=== PATIENT | female | born 1990 | race Caucasian/White ===

== ENCOUNTER 2018-11-21 11:50 | Inpatient (IN) | payer OTHER ==
[2018-11-21 13:07] VITALS: BMI 30.6
--- NOTE | 2018-11-21 14:31 | HP ---
COWS - Scale Resting Pulse: 2= [place] 101-120 Sweatin=Flushed/Facial Moisture Restless Observation: 1= Difficult to Sit Still Pupil Size: 0= Normal to Room Light Bone or Joint Aches: 2= Severe Diffuse Aches Runny Nose/ Eye Tearin= Runny Nose/Eyes GI Upset > 30mins: 2= Nausea/Diarrhea Tremor Observation: 2= Slight Tremor Visible Yawning Observation: 2= >3x During Session Anxiety or Irritability: 2=Irritable/Anxious Goose Flesh Skin: 3=Piloerection COWS Score: 20 CIWA Score Nausea/Vomitin-Mild Nausea/No Vomiting Muscle Tremors: 4-Moderate,w/Arms Extend Anxiety: 4-Mod. Anxious/Guarded Agitation: 4-Moderately Restless Paroxysmal Sweats: 3 Orientation: 0-Oriented Tacttile Disturbances: 0-None Auditory Disturbances: 0-None Visual Disturbances: 0-None Headache: 1-Very Mild CIWA-Ar Total Score: 17 - Admission Criteria [facility] Guidelines: Admission for Medically Managed Detox: Requires at least one of the followin. CIWA greater than 12 2. Seizures within the past 24 hours 3. Delirium tremens within the past 24 hours 4. Hallucinations within the past 24 hours 5. Acute intervention needed for co occurring medical disorder 6. Acute intervention needed for co occurring psychiatric disorder 7. Severe withdrawal that cannot be handled at a lower level of care (continued vomiting, continued diarrhea, abnormal vital signs) requiring intravenous medication and/or fluids 8. Admission ROS [facility] - HPI Chief Complaint: I need to stop using and have to get my life back. Allergies/Adverse Reactions: Allergies Allergy/AdvReac Type Severity Reaction Status Date / Time No Known Allergies Allergy Verified 11/21/18 12:58 History of Present Illness: pt is a 28yr old female first time in detox; seeking detox for treatment. Exam Limitations: No Limitations - Ebola screening Have you traveled outside of the country in the last 21 days: No Have you had contact with anyone from an Ebola affected area: No Have you been sick,other than usual withdrawal symptoms: No Do you have a fever: No - Review of Systems Constitutional: Chills, Diaphoresis, Night Sweats, Changes in sleep EENT: reports: Tearing, Nose Congestion Respiratory: reports: No Symptoms reported Cardiac: reports: No Symptoms Reported GI: reports: Nausea, Poor Appetite, Poor Fluid Intake, Indigestion : reports: No Symptoms Reported Musculoskeletal: reports: Back Pain, Joint Pain, Muscle Pain Integumentary: reports: Flushing, Sweating Neuro: reports: Headache, Seizure (last seizure 08/2017; no episode afterwards. maybe related to drug use), Tingling, Tremors Endocrine: reports: Excessive Sweating, Flushing Hematology: reports: No Symptoms Reported Psychiatric: reports: Judgement Intact, Mood/Affect Appropiate, Orientated x3, Agitated, Anxious Other Systems: Reviewed and Negative Patient History - Patient Medical History Hx Anemia: No Hx Asthma: No Hx Chronic Obstructive Pulmonary Disease (COPD): No Hx Cancer: No Hx Cardiac Disorders: No Hx Congestive Heart Failure: No Hx Hypertension: No Hx Hypercholesterolemia: No Hx Pacemaker: No HX Cerebrovascular Accident: No Hx Seizures: Yes (benzo related a year ago) Hx Dementia: No Hx Diabetes: No Hx Gastrointestinal Disorders: Yes (acid reflux) Hx Liver Disease: No Hx Genitourinary Disorders: No Hx Sexually Transmitted Disorders: No Hx Renal Disease (ESRD): No Hx Thyroid Disease: No Hx Human Immunodeficiency Virus (HIV): No (negative) Hx Hepatitis C: No (negative) Hx Depression: No Hx Suicide Attempt: No (denies) Hx Bipolar Disorder: No Hx Schizophrenia: No Other Medical History: anxiety/insomnia - Patient Surgical History Past Surgical History: No - PPD History Previous Implant?: Yes Documented Results: Negative w/o proof Implanted On Prior [facility] Admission?: No PPD to be Administered?: Yes - Reproductive History Patient is a Female of Child Bearing Age (11 -55 yrs old): Yes Last Menstrual Period: 10/24/18 Patient : No - Smoking Cessation Smoking history: Current every day smoker Have you smoked in the past 12 months: Yes Hx Chewing Tobacco Use: Yes Initiated information on smoking cessation: Yes 'Breaking Loose' booklet given: 11/21/18 - Substance & Tx. History Hx Alcohol Use: No Hx Substance Use: Yes Substance Use Type: Heroin, Opiates, Tranquilizers Hx Substance Use Treatment: No (first detox) - Substances abused Heroin Substance route: Inhalation Frequency: Daily Amount used: 1 BUNDLE Age of first use: 26 Date of last use: 11/20/18 Alprazolam (Xanax) Substance route: Oral Frequency: Daily Amount used: 2MG DAILY Age of first use: 25 Date of last use: 11/20/18 Family Disease History - Family Disease History Family Disease History: Diabetes: Sister Admission Physical Exam [facility] - Vital Signs Vital Signs: Vital Signs - 24 hr 11/21/18 11/21/18 12:58 13:34 Temperature 98.5 F 98.5 F Pulse Rate 102 H 102 H Respiratory 20 20 Rate Blood Pressure 122/74 122/74 - Physical General Appearance: Yes: Appropriately Dressed, Moderate Distress, Tremorous, Irritable, Sweating, Anxious HEENTM: Yes: Normal Voice, Nasal Congestion, Rhinorrhea Respiratory: Yes: Lungs Clear, Normal Breath Sounds, No Respiratory Distress Neck: Yes: No masses,lesions,Nodules Breast: Yes: Within Normal Limits Cardiology: Yes: Regular Rate, S1, S2, Tachycardia Abdominal: Yes: Normal Bowel Sounds, Non Tender Genitourinary: Yes: Within Normal Limits Back: Yes: Normal Inspection Musculoskeletal: Yes: full range of Motion Extremities: Yes: Normal Capillary Refill, Normal Inspection, Non-Tender, Tremors Neurological: Yes: Fully Oriented, Normal Response Integumentary: Yes: Normal Color, Diaphoresis Lymphatic: Yes: Within Normal Limits - Diagnostic (1) Opioid dependence with withdrawal Current Visit: Yes Status: Chronic (2) Sedative, hypnotic or anxiolytic abuse, uncomplicated Current Visit: Yes Status: Chronic (3) Nicotine dependence Current Visit: Yes Status: Chronic Qualifiers: Nicotine product type: cigarettes Substance use status: uncomplicated Qualified Code(s): F17.210 - Nicotine dependence, cigarettes, uncomplicated (4) History of seizure Current Visit: No Status: Suspected Cleared for Admission [facility] - Detox or Rehab [facility] Level of Care: Medically Managed Detox Regimen/Protocol: Methadone/Valium Breathalyzer - Breathalyzer Breathalyzer: 0 Urine Drug Screen - Test Device Lot number: [id number] Expiration date: 06/17/20 - Control Is test valid?: Yes - Results Drug screen NEGATIVE: No Urine drug screen results: THC-Marijuana, MET-Methamphetamine, FEN-Fentanyl, MOP -Opiates, OXY-Oxycodone, MTD-Methadone, BZO-Benzodiazepines Inpatient Rehab Admission - Rehab Decision to Admit Inpatient rehab admission?: No
[2018-11-21] MEDS ORDERED: BISMUTH SUBSALICYLATE 262 MG/15 ML BTL PO PRN (14:50)
[2018-11-21] MEDS ORDERED: MELATONIN 5 MG TABLETS PO PRN (14:50)
[2018-11-21] MEDS ORDERED: MAG HYDROX/AL HYDROX/SIMETH 30 ML UNIT-DOSE CUP PO PRN (14:50)
[2018-11-21] MEDS ORDERED: MAGNESIUM CITRATE 300 ML BOTTLE PO PRN (14:50)
[2018-11-21] MEDS ORDERED: ONDANSETRON *ODT* 4 MG TABLET SL PRN (14:50)
[2018-11-21] MEDS ORDERED: ACETAMINOPHEN 325 MG TABLET (FP) PO PRN (14:50)
[2018-11-21] MEDS ORDERED: DICYCLOMINE HCL 10 MG CAPSULE PO PRN (14:50)
[2018-11-21] MEDS ORDERED: P-EPHED 60MG/TRIPROLIDI 2.5MG TABLET PO PRN (14:50)
[2018-11-21] MEDS ORDERED: MAGNESIUM HYDROX 2400MG/30ML ORAL SUSPENSION 30 ML CUP PO PRN (14:50)
[2018-11-21] MEDS ORDERED: MENTHOL/PHENOL 1 EACH UD MM PRN (14:50)
[2018-11-21] MEDS ORDERED: diazePAM 5 MG TABLET PO ONE (15:30)
[2018-11-21] MEDS ORDERED: METHADONE HCL 10 MG TABLET (FOR DETOX USE ONLY) PO ONE ×2 (15:30→23:00)
--- NOTE | 2018-11-21 16:28 | CONSULT ---
[facility] Psychiatric Consult - Data Date of interview: 11/21/18 Admission source: [facility] Identifying data: First admission to [facility] for this 28 y/o female self-referred for detoxification (heroin, xanax). Examined at [address] [place] [address]. Patient is single, no dependents, currently domiciled (eviction pending), unemployed and deprived of financial support. Substance Abuse History: Confirmed by the patient in this interview. Details in current [facility] report : Smoking history: Current every day smoker. Have you smoked in the past 12 months: Yes. Hx Chewing Tobacco Use: Yes. Initiated information on smoking cessation: Yes. 'Breaking Loose' booklet given: . - Substance & Tx. History. Hx Alcohol Use: No. Hx Substance Use: Yes. Substance Use Type: Heroin, Opiates, Tranquilizers. Hx Substance Use Treatment : No (first detox). - Substances abused. Heroin. Substance route: Inhalation. Frequency: Daily. Amount used: 1 BUNDLE. Age of first use: 26. Date of last use: 11/20/18. Alprazolam (Xanax). Substance route: Oral. Frequency: Daily. Amount used: 2MG DAILY. Age of first use: 25. Date of last use: 11/20/18 Medical History: Consistent with GERD and a history of withdrawal-related seizures (2018). Additional history of one accidental overdose of heroin ( treated with naloxone). Psychiatric History: Patient denies history of psychiatric hospitalizations. Ms Hunt indicates that she has been experiencing debilitating, chronic anxiety but , due to issues of insurance coverage (self-report), she has not been able [facility]. She use xanax, bought in the streets. Patient denies history of suicide attempts. Physical/Sexual Abuse/Trauma History: Patient denies history of abuse. Additional Comment: Urine drug screen results: THC-Marijuana, MET- Methamphetamine, FEN-Fentanyl, MOP-Opiates, OXY-Oxycodone, MTD-Methadone, BZO- Benzodiazepines. Noted. Patient denies use of any substance other than xanax + heroin. She is " surprised " to be informed of the results of this toxicology screen. She concluded that these drugs were added to the heroin used prior to this [facility] visit. Mental Status Exam - Mental Status Exam Alert and Oriented to: Time, Place, Person Cognitive Function: Good Patient Appearance: Well Groomed (overweight) Mood: Nervous, Withdrawn, Anxious Affect: Mood Congruent, Constricted Patient Behavior: Fatigued, Appropriate, Cooperative Speech Pattern: Clear, Appropriate Voice Loudness: Normal Thought Process: Intact, Goal Oriented Thought Disorder: Not Present Hallucinations: Denies Suicidal Ideation: Denies Homicidal Ideation: Denies Insight/Judgement: Poor Sleep: Poorly, Difficulty falling asleep Appetite: Good Gait/Station: Normal Psychiatric Findings - Problem List ([place] 1, 2,3) (1) Opioid dependence with withdrawal Current Visit: Yes Status: Acute (2) Sedative, hypnotic or anxiolytic abuse, uncomplicated Current Visit: Yes Status: Chronic (3) Nicotine dependence Current Visit: Yes Status: Chronic Qualifiers: Nicotine product type: cigarettes Substance use status: uncomplicated Qualified Code(s): F17.210 - Nicotine dependence, cigarettes, uncomplicated (4) Substance induced mood disorder Current Visit: Yes Status: Chronic (5) Insomnia Current Visit: Yes Status: Chronic - Initial Treatment Plan Initial Treatment Plan: Psychoeducation. Sleep hygiene. Detoxification. Relapse prevention (MAT) + benefits of rehabilitative care : discussed in this session. Motivational counseling. Observation.
[2018-11-21] MEDS: ACETAMINOPHEN 325 MG TABLET (FP) PO PRN (17:13)
[2018-11-21] MEDS: cloNIDine HCL 0.1 MG TABLET PO PRN (17:16)
[2018-11-21] MEDS: diazePAM 5 MG TABLET PO PRN (17:16)
[2018-11-21 18:59] LABS: HEMOGLOBIN 12.7 GM/dL (10.7-15.3); MCH 30.4 pg (25.7-33.7); MCHC 33.6 g/dl (32.0-36.0); MEAN CELL VOLUME 90.4 fl (80-96); MEAN PLT VOLUME 7.7 fl (7.5-11.1); PLATELET COUNT 410 K/MM3 (134-434); RDW 12.7 % (11.6-15.6); WHITE BLOOD COUNT 6.4 K/mm3 (4.0-10.0)
[2018-11-21 19:25] LABS: ALBUMIN 4.1 g/dl (3.4-5.0); ALK PHOS 73 U/L (45-117); ANION GAP 6 MMOL/L (8-16); BILIRUBIN,TOTAL 0.5 mg/dL (0.2-1); BLOOD UREA NITROGEN 15 mg/dL (7-18); CALCIUM 9.4 mg/dL (8.5-10.1); CHLORIDE 104 mmol/L (98-107); CO2 28 mmol/L (21-32); CREATININE 0.7 mg/dL (0.55-1.3); GLUCOSE,RANDOM 95 mg/dL (74-106); POTASSIUM 4.3 mmol/L (3.5-5.1); SGOT/AST 18 U/L (15-37); SGPT/ALT 21 U/L (13-61); SODIUM 138 mmol/L (136-145); TOT PROT 7.5 g/dl (6.4-8.2)
[2018-11-21] MEDS: THIAMINE HCL 100 MG TABLET (FP) PO SCH (22:18)
[2018-11-21] MEDS: diazePAM 5 MG TABLET PO SCH (22:18)
[2018-11-21] MEDS: traZODone HCL 50 MG TABLET (FP) PO PRN (22:19)
[2018-11-21] MEDS: RANITIDINE HCL 150 MG TABLET (FP) PO SCH (22:20)
[2018-11-21] MEDS: BACLOFEN 10 MG TABLET (FP) PO PRN (22:20)
[2018-11-22] MEDS: diazePAM 5 MG TABLET PO SCH ×3 (05:37→22:07)
[2018-11-22] MEDS ORDERED: METHADONE HCL 10 MG TABLET (FOR DETOX USE ONLY) PO ONE (10:00)
[2018-11-22] MEDS ORDERED: NICOTINE 21 MG/24 HOURS TOPICAL PATCH TD SCH (10:00)
[2018-11-22] MEDS ORDERED: NICOTINE 14 MG/24 HOURS TOPICAL PATCH TD SCH (10:10)
[2018-11-22] MEDS: PRENATAL VITAMINS W/ FOLIC ACID TABLET (FP) PO SCH (10:17)
[2018-11-22] MEDS: RANITIDINE HCL 150 MG TABLET (FP) PO SCH ×2 (10:17→22:07)
[2018-11-22] MEDS: diazePAM 5 MG TABLET PO PRN ×2 (10:19→17:08)
[2018-11-22] MEDS ORDERED: NICOTINE 14 MG/24 HOURS TOPICAL PATCH TD ONE (10:52)
[2018-11-22] MEDS: NICOTINE POLACRILEX 4 MG GUM BUC PRN ×2 (11:39→17:08)
--- NOTE | 2018-11-22 11:41 | EKG ---
Test Reason : Blood Pressure : / mmHG Vent. Rate : 089 BPM Atrial Rate : 089 BPM P-R Int : 136 ms QRS Dur : 088 ms QT Int : 354 ms P-R-T Axes : 055 061 025 degrees QTc Int : 430 ms NORMAL SINUS RHYTHM NORMAL ECG NO PREVIOUS ECGS AVAILABLE Confirmed by Nghia Veliz MD ([id number]) on 11/22/2018 11:40:44 AM Referred By: Confirmed By:Nghia Veliz MD
--- NOTE | 2018-11-22 12:04 | PN ---
[facility] CIWA - CIWA Score Nausea/Vomitin-Mild Nausea/No Vomiting Muscle Tremors: 4-Moderate,w/Arms Extend Anxiety: 3 Agitation: 3 Paroxysmal Sweats: 1-Minimal Palms Moist Orientation: 3-Disoriented Date>2 days Tacttile Disturbances: 0-None Auditory Disturbances: 0-None Visual Disturbances: 0-None Headache: 0-None Present CIWA-Ar Total Score: 15 S COWS - Scale Resting Pulse: 1= [place] 81-100 Sweatin= Chills/Flushing Restless Observation: 1= Difficult to Sit Still Pupil Size: 0= Normal to Room Light Bone or Joint Aches: 1= Mild Discomfort Runny Nose/ Eye Tearin= Nasal Congestion GI Upset > 30mins: 2= Nausea/Diarrhea Tremor Observation of Outstretched Hands: 1= Tremor [place], Not Seen Yawning Observation: 1= 1-2x During Session Anxiety or Irritability: 2=Irritable/Anxious Goose Flesh Skin: 3=Piloerection COWS Score: 14 [facility] Progress Note (SOAP) Subjective: feeling better today doing ok with valium and methadone Objective: 11/22/18 12:05 Vital Signs Temperature 97.2 F L 11/22/18 09:12 Pulse Rate 84 11/22/18 09:12 Respiratory Rate 18 11/22/18 09:12 Blood Pressure 90/64 11/22/18 09:12 O2 Sat by Pulse Oximetry (%) Laboratory Last Values WBC 6.4 K/mm3 (4.0-10.0) 11/21/18 14:50 RBC 4.20 M/mm3 (3.60-5.2) 11/21/18 14:50 Hgb 12.7 GM/dL (10.7-15.3) 11/21/18 14:50 Hct 38.0 % (32.4-45.2) 11/21/18 14:50 MCV 90.4 fl (80-96) 11/21/18 14:50 MCH 30.4 pg (25.7-33.7) 11/21/18 14:50 MCHC 33.6 g/dl (32.0-36.0) 11/21/18 14:50 RDW 12.7 % (11.6-15.6) 11/21/18 14:50 Plt Count 410 K/MM3 (134-434) 11/21/18 14:50 MPV 7.7 fl (7.5-11.1) 11/21/18 14:50 Sodium 138 mmol/L (136-145) 11/21/18 14:50 Potassium 4.3 mmol/L (3.5-5.1) 11/21/18 14:50 Chloride 104 mmol/L (98-107) 11/21/18 14:50 Carbon Dioxide 28 mmol/L (21-32) 11/21/18 14:50 Anion Gap 6 MMOL/L (8-16) L 11/21/18 14:50 BUN 15 mg/dL (7-18) 11/21/18 14:50 Creatinine 0.7 mg/dL (0.55-1.3) 11/21/18 14:50 Creat Clearance w eGFR 98.93 (>60) 11/21/18 14:50 Random Glucose 95 mg/dL (74-106) 11/21/18 14:50 Calcium 9.4 mg/dL (8.5-10.1) 11/21/18 14:50 Total Bilirubin 0.5 mg/dL (0.2-1) 11/21/18 14:50 AST 18 U/L (15-37) 11/21/18 14:50 ALT 21 U/L (13-61) 11/21/18 14:50 Alkaline Phosphatase 73 U/L (45-117) 11/21/18 14:50 Total Protein 7.5 g/dl (6.4-8.2) 11/21/18 14:50 Albumin 4.1 g/dl (3.4-5.0) 11/21/18 14:50 lab noted Assessment: 11/22/18 12:05 withdrawal sx Plan: continue detox
[2018-11-22] MEDS: cloNIDine HCL 0.1 MG TABLET PO PRN (13:58)
[2018-11-22] MEDS: BACLOFEN 10 MG TABLET (FP) PO PRN ×2 (13:58→22:07)
[2018-11-22] MEDS: THIAMINE HCL 100 MG TABLET (FP) PO SCH (22:08)
[2018-11-22] MEDS: traZODone HCL 50 MG TABLET (FP) PO PRN (22:08)
[2018-11-22] MEDS: ACETAMINOPHEN 325 MG TABLET (FP) PO PRN (22:48)
[2018-11-23] MEDS: diazePAM 5 MG TABLET PO PRN ×3 (06:05→17:42)
[2018-11-23] MEDS: NICOTINE POLACRILEX 4 MG GUM BUC PRN (08:30)
[2018-11-23] MEDS: cloNIDine HCL 0.1 MG TABLET PO PRN ×2 (08:30→22:09)
[2018-11-23] MEDS: hydrOXYzine PAMOATE 25 MG CAPSULE (FP) PO PRN (08:30)
[2018-11-23] MEDS ORDERED: METHADONE HCL 10 MG TABLET (FOR DETOX USE ONLY) PO ONE (10:00)
[2018-11-23] MEDS: diazePAM 5 MG TABLET PO SCH ×2 (10:01→22:06)
[2018-11-23] MEDS: RANITIDINE HCL 150 MG TABLET (FP) PO SCH ×2 (10:01→22:06)
[2018-11-23] MEDS: PRENATAL VITAMINS W/ FOLIC ACID TABLET (FP) PO SCH (10:01)
[2018-11-23] MEDS: BACLOFEN 10 MG TABLET (FP) PO PRN ×2 (12:40→22:10)
--- NOTE | 2018-11-23 14:39 | PN ---
[facility] CIWA - CIWA Score Nausea/Vomitin-Mild Nausea/No Vomiting Muscle Tremors: 3 Anxiety: 1-Mildly Anxious Agitation: 2 Paroxysmal Sweats: 1-Minimal Palms Moist Orientation: 1-Uncertain about Date Tacttile Disturbances: 0-None Auditory Disturbances: 0-None Visual Disturbances: 0-None Headache: 1-Very Mild CIWA-Ar Total Score: 10 [facility] COWS - Scale Resting Pulse: 1= [place] 81-100 Sweatin= Chills/Flushing Restless Observation: 1= Difficult to Sit Still Pupil Size: 0= Normal to Room Light Bone or Joint Aches: 1= Mild Discomfort Runny Nose/ Eye Tearin= Nasal Congestion GI Upset > 30mins: 1= Stomach Cramp Tremor Observation of Outstretched Hands: 1= Tremor [place], Not Seen Yawning Observation: 1= 1-2x During Session Anxiety or Irritability: 1=Feels Anxious/Irritable Goose Flesh Skin: 0=Smooth Skin COWS Score: 9 S Progress Note (SOAP) Subjective: feeling better today wants to go to alcohol and rehab tomorrow discuss aftercare with staff possible [facility] Objective: 11/23/18 14:38 Vital Signs Temperature 99.6 F 11/23/18 14:17 Pulse Rate 85 11/23/18 14:17 Respiratory Rate 18 11/23/18 14:17 Blood Pressure 105/74 11/23/18 14:17 O2 Sat by Pulse Oximetry (%) Laboratory Last Values WBC 6.4 K/mm3 (4.0-10.0) 11/21/18 14:50 RBC 4.20 M/mm3 (3.60-5.2) 11/21/18 14:50 Hgb 12.7 GM/dL (10.7-15.3) 11/21/18 14:50 Hct 38.0 % (32.4-45.2) 11/21/18 14:50 MCV 90.4 fl (80-96) 11/21/18 14:50 MCH 30.4 pg (25.7-33.7) 11/21/18 14:50 MCHC 33.6 g/dl (32.0-36.0) 11/21/18 14:50 RDW 12.7 % (11.6-15.6) 11/21/18 14:50 Plt Count 410 K/MM3 (134-434) 11/21/18 14:50 MPV 7.7 fl (7.5-11.1) 11/21/18 14:50 Sodium 138 mmol/L (136-145) 11/21/18 14:50 Potassium 4.3 mmol/L (3.5-5.1) 11/21/18 14:50 Chloride 104 mmol/L (98-107) 11/21/18 14:50 Carbon Dioxide 28 mmol/L (21-32) 11/21/18 14:50 Anion Gap 6 MMOL/L (8-16) L 11/21/18 14:50 BUN 15 mg/dL (7-18) 11/21/18 14:50 Creatinine 0.7 mg/dL (0.55-1.3) 11/21/18 14:50 Creat Clearance w eGFR 98.93 (>60) 11/21/18 14:50 Random Glucose 95 mg/dL (74-106) 11/21/18 14:50 Calcium 9.4 mg/dL (8.5-10.1) 11/21/18 14:50 Total Bilirubin 0.5 mg/dL (0.2-1) 11/21/18 14:50 AST 18 U/L (15-37) 11/21/18 14:50 ALT 21 U/L (13-61) 11/21/18 14:50 Alkaline Phosphatase 73 U/L (45-117) 11/21/18 14:50 Total Protein 7.5 g/dl (6.4-8.2) 11/21/18 14:50 Albumin 4.1 g/dl (3.4-5.0) 11/21/18 14:50 RPR Titer Nonreactive (NONREACTIVE) 11/21/18 14:50 lab noted Assessment: 11/23/18 14:38 mild alcohol and opiate withdrawal sx Plan: continue detox
[2018-11-23] MEDS: IBUPROFEN 400 MG TABLET (FP) PO PRN (19:51)
[2018-11-23] MEDS: THIAMINE HCL 100 MG TABLET (FP) PO SCH (22:05)
[2018-11-23] MEDS: traZODone HCL 50 MG TABLET (FP) PO PRN (22:07)
[2018-11-24] MEDS ORDERED: diazePAM 5 MG TABLET PO SCH (06:00)
[2018-11-24] MEDS: IBUPROFEN 400 MG TABLET (FP) PO PRN (06:04)
[2018-11-24] MEDS: BACLOFEN 10 MG TABLET (FP) PO PRN (06:04)
[2018-11-24 07:00] VITALS: BP 97/63; PULSE 76; TEMP 97.4
[2018-11-24] MEDS: hydrOXYzine PAMOATE 25 MG CAPSULE (FP) PO PRN (09:05)
[2018-11-24] MEDS ORDERED: METHADONE HCL 10 MG TABLET (FOR DETOX USE ONLY) PO ONE (10:00)
--- NOTE | 2018-11-24 16:11 | DS ---
[facility] Detox Discharge Summary Admission Date: 11/21/18 Discharge Date: 11/24/18 - History Present History: Opioid Dependence, Sedative Dependence Additional Comments: 28 YEARS OLD FEMALE ADMITTED ON 11/21/18 FOR BENZO AND OPIATE WITHDRAWAL STABILIZATION PREFERRING TO GO TO REHAB TODAY [facility] ALERT NO ACUTE DISTRESS DENIES SUICIDAL IDEATION Pertinent Past History: BRING IN MEDICATION LIST AND LAB REPORT TO AFTERCARE APPOINTMENT - Physical Exam Results Vital Signs: Vital Signs Temperature 97.4 F L 11/24/18 06:59 Pulse Rate 76 11/24/18 06:59 Respiratory Rate 18 11/24/18 06:59 Blood Pressure 97/63 11/24/18 06:59 O2 Sat by Pulse Oximetry (%) Pertinent Admission Physical Exam Findings: BENZO AND OPIATE WITHDRAWAL SX Laboratory Last Values WBC 6.4 K/mm3 (4.0-10.0) 11/21/18 14:50 RBC 4.20 M/mm3 (3.60-5.2) 11/21/18 14:50 Hgb 12.7 GM/dL (10.7-15.3) 11/21/18 14:50 Hct 38.0 % (32.4-45.2) 11/21/18 14:50 MCV 90.4 fl (80-96) 11/21/18 14:50 MCH 30.4 pg (25.7-33.7) 11/21/18 14:50 MCHC 33.6 g/dl (32.0-36.0) 11/21/18 14:50 RDW 12.7 % (11.6-15.6) 11/21/18 14:50 Plt Count 410 K/MM3 (134-434) 11/21/18 14:50 MPV 7.7 fl (7.5-11.1) 11/21/18 14:50 Sodium 138 mmol/L (136-145) 11/21/18 14:50 Potassium 4.3 mmol/L (3.5-5.1) 11/21/18 14:50 Chloride 104 mmol/L (98-107) 11/21/18 14:50 Carbon Dioxide 28 mmol/L (21-32) 11/21/18 14:50 Anion Gap 6 MMOL/L (8-16) L 11/21/18 14:50 BUN 15 mg/dL (7-18) 11/21/18 14:50 Creatinine 0.7 mg/dL (0.55-1.3) 11/21/18 14:50 Creat Clearance w eGFR 98.93 (>60) 11/21/18 14:50 Random Glucose 95 mg/dL (74-106) 11/21/18 14:50 Calcium 9.4 mg/dL (8.5-10.1) 11/21/18 14:50 Total Bilirubin 0.5 mg/dL (0.2-1) 11/21/18 14:50 AST 18 U/L (15-37) 11/21/18 14:50 ALT 21 U/L (13-61) 11/21/18 14:50 Alkaline Phosphatase 73 U/L (45-117) 11/21/18 14:50 Total Protein 7.5 g/dl (6.4-8.2) 11/21/18 14:50 Albumin 4.1 g/dl (3.4-5.0) 11/21/18 14:50 RPR Titer Nonreactive (NONREACTIVE) 11/21/18 14:50 LAB NOTED - Treatment Hospital Course: Detox Protocol Followed, Detoxed Safely, Responded well, Discharged Condition Good, Rehab Referral Accepted Patient has Accepted a Rehab Referral to: [facility] - Medication Discharge Medications: Ambulatory Orders NK [No Known Home Medication] 11/21/18 - Diagnosis (1) Opioid dependence with withdrawal Status: Acute (2) Nicotine dependence Status: Acute Qualifiers: Nicotine product type: cigarettes Substance use status: in withdrawal Qualified Code(s): F17.213 - Nicotine dependence, cigarettes, with withdrawal (3) Sedative, hypnotic or anxiolytic abuse, uncomplicated Status: Acute (4) Substance induced mood disorder Status: Suspected - AMA Did Patient Leave Against Medical Advice: No
[2018-11-25] MEDS ORDERED: METHADONE HCL 5 MG TABLET (FOR DETOX USE ONLY) PO ONE (06:00)
== END 2018-11-24 09:33 | disposition home or self-care (01) | DRG 773 ==
LOC: YASAS 11:50 → Y3N 14:48
PROVIDERS: ADMIT Surgery; ATTEND Surgery
PROC: HZ2ZZZZ Detoxification Services for Substance Abuse Treatment (ICD-10-PCS; principal; 2018-11-21)
DX: F11.23 Opioid dependence with withdrawal (principal); F13.230 Sedative, hypnotic or anxiolytic dependence with withdrawal, uncomplicated; F17.213 Nicotine dependence, cigarettes, with withdrawal; F19.24 Other psychoactive substance dependence with psychoactive substance-induced mood disorder; G47.00 Insomnia, unspecified; K21.9 Gastro-esophageal reflux disease without esophagitis; Z86.69 Personal history of other diseases of the nervous system and sense organs
CPT/HCPCS: 36415; 80053; 85027; 86593; 93005; 93010; J0475; J0735; Q0162

== ENCOUNTER 2022-03-10 19:10 | Inpatient (IN) | payer OTHER ==
[2022-03-10 20:28] VITALS: BMI 36.6
[2022-03-10] MEDS ORDERED: BENZOCAINE/MENTHOL (CHLORASEPTIC ) LOZENGE MM PRN (23:34)
[2022-03-10] MEDS ORDERED: BISMUTH SUBSALICYLATE 524 MG/30 ML PO PRN (23:34)
[2022-03-10] MEDS ORDERED: cloNIDine HCL 0.1 MG TABLET PO PRN (23:34)
[2022-03-10] MEDS ORDERED: MAGNESIUM CITRATE 300 ML BOTTLE PO PRN (23:34)
[2022-03-10] MEDS ORDERED: LOPERAMIDE HCL 2 MG CAPSULE PO PRN (23:34)
[2022-03-10] MEDS ORDERED: ACETAMINOPHEN 325 MG TABLET (FP) PO PRN (23:34)
[2022-03-10] MEDS ORDERED: DICYCLOMINE HCL 10 MG CAPSULE PO PRN (23:34)
[2022-03-10] MEDS ORDERED: MAG HYDROX/AL HYDROX/SIMETH 30 ML UNIT-DOSE CUP PO PRN (23:34)
[2022-03-10] MEDS ORDERED: IBUPROFEN 400 MG TABLET (FP) PO PRN (23:34)
[2022-03-10] MEDS ORDERED: ONDANSETRON *ODT* 4 MG TABLET SL PRN (23:34)
[2022-03-11] MEDS ORDERED: methaDONE HCL 10 MG TABLET (FOR DETOX USE ONLY) PO ONE (00:45)
[2022-03-11] MEDS: METHOCARBAMOL 500 MG TABLET PO PRN ×2 (00:52→22:25)
[2022-03-11] MEDS: IBUPROFEN 600 MG TABLET (FP) PO PRN ×3 (00:52→22:27)
[2022-03-11] MEDS: diazePAM 5 MG TABLET PO SCH ×5 (00:55→22:24)
[2022-03-11] MEDS ORDERED: traZODone HCL 50 MG TABLET (FP) PO ONE (01:00)
[2022-03-11] MEDS: hydrOXYzine PAMOATE 25 MG CAPSULE (FP) PO SCH ×5 (05:53→22:23)
[2022-03-11] MEDS: PRENATAL VITAMINS W/ FOLIC ACID TABLET (FP) PO SCH (10:32)
[2022-03-11] MEDS: NICOTINE 14 MG/24 HOURS TOPICAL PATCH TD SCH (10:36)
[2022-03-11 10:37] LABS: CALCIUM 9.3 mg/dL (8.5-10.1)
[2022-03-11 10:38] LABS: ALBUMIN 3.8 g/dl (3.4-5.0); BLOOD UREA NITROGEN 12.3 mg/dL (7-18); HEMATOCRIT 36.8 % (32.4-45.2); HEMOGLOBIN 12.3 GM/dL (10.7-15.3); MCH 30.6 pg (25.7-33.7); MCHC 33.4 g/dl (32.0-36.0); MEAN CELL VOLUME 91.6 fl (80-96); MEAN PLT VOLUME 8.1 fl (7.5-11.1); PLATELET COUNT 410 10^3/uL (134-434); RBC 4.02 M/mm3 (3.60-5.2); RDW 13.1 % (11.6-15.6); WHITE BLOOD COUNT 9.7 K/mm3 (4.0-10.0)
[2022-03-11 10:41] LABS: CREATININE 0.6 mg/dL (0.55-1.3)
[2022-03-11 10:44] LABS: BILIRUBIN,TOTAL 0.6 mg/dL (0.2-1)
[2022-03-11] MEDS: diazePAM 5 MG TABLET PO PRN (14:15)
[2022-03-11] MEDS ORDERED: MELATONIN 5 MG TABLETS PO SCH (22:00)
[2022-03-11] MEDS: THIAMINE HCL 100 MG TABLET (FP) PO SCH (22:25)
[2022-03-12] MEDS: IBUPROFEN 600 MG TABLET (FP) PO PRN ×3 (05:49→22:07)
[2022-03-12] MEDS: hydrOXYzine PAMOATE 25 MG CAPSULE (FP) PO SCH ×5 (05:50→23:04)
[2022-03-12] MEDS: METHOCARBAMOL 500 MG TABLET PO PRN ×3 (05:50→23:01)
[2022-03-12] MEDS: diazePAM 5 MG TABLET PO SCH ×3 (05:50→23:00)
[2022-03-12] MEDS ORDERED: methaDONE HCL 10 MG TABLET (FOR DETOX USE ONLY) PO ONE (10:00)
[2022-03-12] MEDS: NICOTINE 14 MG/24 HOURS TOPICAL PATCH TD SCH (10:48)
[2022-03-12] MEDS: PRENATAL VITAMINS W/ FOLIC ACID TABLET (FP) PO SCH (10:48)
[2022-03-12] MEDS: diazePAM 5 MG TABLET PO PRN (11:05)
[2022-03-12] MEDS: NICOTINE 10 MG CARTRIDGE (INHALER) IH PRN (20:00)
[2022-03-12] MEDS: MAGNESIUM HYDROX 2400MG/30ML ORAL SUSPENSION 30 ML CUP PO PRN (20:01)
[2022-03-12] MEDS: THIAMINE HCL 100 MG TABLET (FP) PO SCH (22:04)
[2022-03-12] MEDS: traZODone HCL 100 MG TABLET (FP) PO SCH (22:04)
[2022-03-13] MEDS: METHOCARBAMOL 500 MG TABLET PO PRN ×2 (06:51→18:10)
[2022-03-13] MEDS: IBUPROFEN 600 MG TABLET (FP) PO PRN ×2 (06:51→18:06)
[2022-03-13] MEDS: diazePAM 5 MG TABLET PO SCH ×2 (06:51→18:04)
[2022-03-13] MEDS: hydrOXYzine PAMOATE 25 MG CAPSULE (FP) PO SCH ×5 (06:52→22:18)
[2022-03-13] MEDS: NICOTINE 14 MG/24 HOURS TOPICAL PATCH TD SCH (10:46)
[2022-03-13] MEDS: PRENATAL VITAMINS W/ FOLIC ACID TABLET (FP) PO SCH (10:46)
[2022-03-13] MEDS: diazePAM 5 MG TABLET PO PRN ×2 (11:15→22:20)
[2022-03-13] MEDS: traZODone HCL 100 MG TABLET (FP) PO SCH (22:18)
[2022-03-13] MEDS: THIAMINE HCL 100 MG TABLET (FP) PO SCH (22:18)
[2022-03-13] MEDS: MAGNESIUM HYDROX 2400MG/30ML ORAL SUSPENSION 30 ML CUP PO PRN (22:22)
[2022-03-14] MEDS: METHOCARBAMOL 500 MG TABLET PO PRN ×3 (05:52→22:16)
[2022-03-14] MEDS: hydrOXYzine PAMOATE 25 MG CAPSULE (FP) PO SCH ×5 (05:52→22:14)
[2022-03-14] MEDS: IBUPROFEN 600 MG TABLET (FP) PO PRN ×2 (05:52→17:18)
[2022-03-14] MEDS ORDERED: diazePAM 5 MG TABLET PO ONE (06:00)
[2022-03-14] MEDS ORDERED: methaDONE HCL 10 MG TABLET (FOR DETOX USE ONLY) PO ONE (10:00)
[2022-03-14] MEDS: PRENATAL VITAMINS W/ FOLIC ACID TABLET (FP) PO SCH (10:47)
[2022-03-14] MEDS: NICOTINE 14 MG/24 HOURS TOPICAL PATCH TD SCH (10:48)
[2022-03-14] MEDS: ACETAMINOPHEN 325 MG TABLET (FP) PO PRN ×2 (13:05→22:18)
[2022-03-14 13:53] VITALS: RESP 18
[2022-03-14] MEDS: THIAMINE HCL 100 MG TABLET (FP) PO SCH (22:14)
[2022-03-14] MEDS: traZODone HCL 100 MG TABLET (FP) PO SCH (22:14)
[2022-03-14] MEDS: NICOTINE 10 MG CARTRIDGE (INHALER) IH PRN (22:24)
[2022-03-15] MEDS: METHOCARBAMOL 500 MG TABLET PO PRN (06:04)
[2022-03-15] MEDS: IBUPROFEN 600 MG TABLET (FP) PO PRN (06:04)
[2022-03-15] MEDS: hydrOXYzine PAMOATE 25 MG CAPSULE (FP) PO SCH (06:05)
[2022-03-15 09:29] VITALS: BP 144/87; PULSE 103; TEMP 97.5
== END 2022-03-15 08:47 | disposition home or self-care (01) | DRG 773 ==
LOC: YASAS 19:10 → Y3N 23:26
PROVIDERS: ADMIT Allergy & Immunology; ATTEND Surgery
PROC: HZ2ZZZZ Detoxification Services for Substance Abuse Treatment (ICD-10-PCS; principal; 2022-03-10)
DX: F11.23 Opioid dependence with withdrawal (principal); F13.20 Sedative, hypnotic or anxiolytic dependence, uncomplicated; F17.213 Nicotine dependence, cigarettes, with withdrawal; F19.24 Other psychoactive substance dependence with psychoactive substance-induced mood disorder; F41.9 Anxiety disorder, unspecified; F41.0 Panic disorder [episodic paroxysmal anxiety]; G47.00 Insomnia, unspecified; R74.01 Elevation of levels of liver transaminase levels; Z86.69 Personal history of other diseases of the nervous system and sense organs; Z86.59 Personal history of other mental and behavioral disorders
CPT/HCPCS: 36415; 80053; 81025; 85027; 86780; 87811; C9803-CS; U0003; U0005

== ENCOUNTER 2024-09-12 10:26 | Inpatient (IN) | payer OTHER ==
[2024-09-12 11:03] VITALS: BMI 27.3
[2024-09-12] MEDS ORDERED: BENZOCAINE/MENTHOL (CHLORASEPTIC ) LOZENGE MM PRN (11:17)
[2024-09-12] MEDS ORDERED: ONDANSETRON *ODT* 4 MG TABLET SL PRN (11:17)
[2024-09-12] MEDS ORDERED: DICYCLOMINE HCL 10 MG CAPSULE PO PRN (11:17)
[2024-09-12] MEDS ORDERED: POLYETHYLENE GLYCOL (HEALTHYLAX) 3350 17 GM PACKET PO PRN (11:17)
[2024-09-12] MEDS ORDERED: P-EPHED 60MG/TRIPROLIDI 2.5MG TABLET PO PRN (11:17)
[2024-09-12] MEDS ORDERED: NICOTINE POLACRILEX 2 MG LOZENGE BC PRN (11:17)
[2024-09-12] MEDS ORDERED: NALOXONE (NARCAN) HCL 4 MG/0.1 ML SPRAY NS PRN (11:17)
[2024-09-12] MEDS ORDERED: LOPERAMIDE HCL 2 MG CAPSULE PO PRN (11:17)
[2024-09-12] MEDS ORDERED: MAG HYDROX/AL HYDROX/SIMETH 30 ML UNIT-DOSE CUP PO PRN (11:17)
[2024-09-12] MEDS ORDERED: MAGNESIUM HYDROX 2400MG/30ML ORAL SUSPENSION 30 ML CUP PO PRN (11:17)
[2024-09-12] MEDS ORDERED: BISMUTH SUBSALICYLATE 262 MG/15 ML BTL PO PRN (11:17)
[2024-09-12] MEDS ORDERED: BENZONATATE 200 MG CAPSULE PO PRN (11:17)
[2024-09-12] MEDS ORDERED: methaDONE HCL 10 MG TABLET (FOR DETOX USE ONLY) ONE (11:40)
[2024-09-12] MEDS: methaDONE HCL 10 MG TABLET (FOR DETOX USE ONLY) PO ONE (11:43)
[2024-09-12] MEDS: METHOCARBAMOL 500 MG TABLET PO PRN (19:37)
[2024-09-12] MEDS: THIAMINE 100 MG TABLET PO SCH (22:29)
[2024-09-12] MEDS: MELATONIN 5 MG TABLETS PO SCH (22:29)
[2024-09-12] MEDS: cloNIDine HCL 0.1 MG TABLET PO PRN (22:30)
[2024-09-12] MEDS: guaiFENesin 600 MG TABLET.ER (FP) PO PRN (22:31)
[2024-09-12] MEDS: ACETAMINOPHEN 325 MG TABLET (FP) PO PRN (22:35)
[2024-09-13] MEDS: PRENATAL VITAMINS W/ FOLIC ACID TABLET (FP) PO SCH (09:49)
[2024-09-13] MEDS: methaDONE HCL 10 MG TABLET (FOR DETOX USE ONLY) PO ONE (09:51)
[2024-09-13] MEDS: IBUPROFEN 600 MG TABLET (FP) PO PRN (09:53)
[2024-09-13 12:26] LABS: MCH 29.2 pg (25.7-33.7); MCHC 33.3 g/dl (32.0-36.0); MEAN CELL VOLUME 87.7 fl (80-96); MEAN PLT VOLUME 7.7 fl (7.5-11.1); PLATELET COUNT 365 10^3/uL (134-434); RBC 4.11 M/mm3 (3.60-5.2); RDW 14.5 % (11.6-15.6); WHITE BLOOD COUNT 5.2 K/mm3 (4.0-10.0)
[2024-09-13 12:50] LABS: ALBUMIN 3.1 g/dl (3.4-5.0)
[2024-09-13 12:51] LABS: BLOOD UREA NITROGEN 11.3 mg/dL (7-18)
[2024-09-13 12:53] LABS: CREATININE 0.5 mg/dL (0.55-1.3)
[2024-09-13 12:54] LABS: BILIRUBIN,TOTAL 0.5 mg/dL (0.2-1); TOT PROT 5.7 g/dl (6.4-8.2)
[2024-09-13] MEDS: hydrOXYzine PAMOATE 25 MG CAPSULE (FP) PO PRN (15:51)
[2024-09-13] MEDS: traZODone HCL 50 MG TABLET (FP) PO SCH (22:36)
[2024-09-13] MEDS: NICOTINE POLACRILEX 2 MG GUM BUC PRN (22:40)
[2024-09-14] MEDS ORDERED: methaDONE HCL 40 MG DISPERSABLE TABLET PO ONE (11:31)
[2024-09-14] MEDS: cloNIDine HCL 0.1 MG TABLET PO SCH (13:31)
[2024-09-14] MEDS: diazePAM 5 MG TABLET PO PRN (13:56)
[2024-09-15] MEDS: methaDONE 40 MG, methaDONE 20 MG PO ONE (09:04)
[2024-09-15] MEDS ORDERED: methaDONE HCL 10 MG TABLET (FOR DETOX USE ONLY) PO ONE (10:00)
[2024-09-15] MEDS: diazePAM 5 MG TABLET PO PRN (14:10)
[2024-09-16] MEDS: methaDONE 40 MG, methaDONE 30 MG PO ONE (09:36)
[2024-09-16] MEDS: cloNIDine HCL 0.1 MG TABLET PO PRN (09:36)
[2024-09-17] MEDS: IBUPROFEN 400 MG TABLET (FP) PO PRN (09:31)
[2024-09-17] MEDS: methaDONE HCL 40 MG DISPERSABLE TABLET PO ONE (09:32)
[2024-09-17] MEDS ORDERED: methaDONE HCL 10 MG TABLET (FOR DETOX USE ONLY) PO ONE (10:00)
[2024-09-18 06:59] VITALS: BP 106/68; PULSE 79; RESP 17; TEMP 97.2
[2024-09-18] MEDS ORDERED: methaDONE 80 MG, methaDONE 10 MG PO ONE (10:00)
[2024-09-18] MEDS: methaDONE 80 MG, methaDONE 10 MG PO ONE (10:31)
== END 2024-09-18 07:29 | disposition home or self-care (01) | DRG 773 ==
LOC: YASAS 10:26 → Y6N 11:34
PROVIDERS: ADMIT Allergy & Immunology; ATTEND Allergy & Immunology
PROC: HZ2ZZZZ Detoxification Services for Substance Abuse Treatment (ICD-10-PCS; principal; 2024-09-12)
DX: F11.23 Opioid dependence with withdrawal (principal); F14.20 Cocaine dependence, uncomplicated; F17.210 Nicotine dependence, cigarettes, uncomplicated; F19.282 Other psychoactive substance dependence with psychoactive substance-induced sleep disorder; F32.A Depression, unspecified; F41.9 Anxiety disorder, unspecified; F41.0 Panic disorder [episodic paroxysmal anxiety]; G47.00 Insomnia, unspecified; Z86.59 Personal history of other mental and behavioral disorders; Z56.0 Unemployment, unspecified
CPT/HCPCS: 36415; 71046-TC-FY; 80053; 80305; 80307; 81025; 85027; 86780; 93005; 93010